=== PATIENT | male | born 1960 | race Caucasian/White ===

== ENCOUNTER 2020-07-10 11:51 | Emergency (ER) | payer BC, SELFPAY ==
[2020-07-10 12:00] VITALS: BP 144/78; PULSE 58; RESP 14; TEMP 36.8; O2SAT 100
--- NOTE | 2020-07-10 12:21 | ED.GENADULT ---
HPI - General Adult General Chief complaint: Eye Problems Stated complaint: right eye red/swollen Time Seen by Provider: 07/10/20 12:21 Source: patient and RN notes reviewed Mode of arrival: ambulatory Limitations: no limitations History of Present Illness HPI narrative: 60-year-old male presents with complains of eye pain, photophobia, tearing, sensation of foreign body or abrasion in right eye for the past 24 hours. Willian says he was out cutting firewood, had on safety glasses, unsure how foreign body entered eye. Flushed without relief. Mild redness, no drainage. Symptoms worsening throughout the day. Exacerbating factor light. Relieving factors is closing eyes. Denies blurred vision, double vision, or pain of eye with movement. Wears reading glasses. The patient reports he have not been diagnosed with COVID-19. The patient reports he is not waiting for the results of a COVID-19 lab test. The patient reports he do not have fever, chills, weakness, or fatigue. The patient reports he do not have a new or worsening cough or shortness of breath. Denies chest pain. The patient reports he do not have any rhinorrhea, congestion, loss of taste, sore throat, nausea, vomiting, abdominal pain, and diarrhea. Tolerating po intake well. Denies recent traveling. Denies concerns for COVID-19 or exposures been home with limited outdoor exposure except for essential household needs, work, and return home. At this time, patient is not suspected of having COVID-19. Some parts of this dictation were generated by voice recognition software and may contain typographical and/or grammatical inaccuracies. Related Data Allergies Allergy/AdvReac Type Severity Reaction Status Date / Time No Known Allergies Allergy Verified 07/10/20 12:12 Review of Systems Review of Systems: Narrative: CONSTITUTIONAL: Denies fever, chills, sweats. EYES: Denies visual changes. Complains of RT eye redness photophobia, tearing, sensation of foreign body or abrasion. ENT: Denies rhinorrhea, congestion, sore throat, otalgia. CARDIOVASCULAR: Denies chest pain, palpitations, edema. RESPIRATORY: Denies dyspnea, wheezing, cough. GASTROINTESTINAL: Denies abdominal pain, nausea, vomiting, diarrhea. SKIN: Denies rash or itching. NEUROLOGIC: Denies numbness or focal weakness. PSYCHIATRIC: Denies anxiety or depression. All systems reviewed & are unremarkable except as noted in HPI and below [facility] Past Medical History Medical History (Updated 07/11/20 @ 00:00 by Judy Cleveland) Foot injury LT heel Hernia Surgical History Surgical History (Updated 07/10/20 @ 12:40 by COLT Mcfadden) History of hernia surgery Bilateral inguinal and umbilical repairs Family History Family History (Updated 07/10/20 @ 12:41 by COLT Mcfadden) Father Pulmonary air embolism Mother , Data 84 complications of congestive heart failure Diabetes mellitus Social History Social History (Updated 07/10/20 @ 12:42 by COLT Mcfadden) Smoking status: Former smoker Tobacco type: cigarettes Second hand tobacco smoke exposure: No Smoking end date: 08/10/14 Alcohol intake: current Substance use: never Living arrangements: alone Additional living arrangements comments: has a cat Occupation/Education: occupation Gender identity (if verbalized by the patient): Male Comments At time of signature, I have reviewed and agree with nursing past medical, surgical, social, and family history. Please see nursing chart for further information. There is no relevant family history pertinent to the presenting complaint. Exam Narrative: Exam Narrative: GENERAL: This is a well-nourished, well-developed patient, in no apparent distress. HEAD: normocephalic, atraumatic. EYES: PERRL. Sclera clear/white to LT eye only. RT eye sclera prince and clear with clear watery drainage, no swelling, no tenderness on palpation or erythema
== END 2020-07-10 12:51 | disposition home or self-care (01) ==
PROVIDERS: Emergency Provider Nurse Practitioner Family
DX: S05.01XA Injury of conjunctiva and corneal abrasion without foreign body, right eye, initial encounter (principal); X58.XXXA Exposure to other specified factors, initial encounter; Z87.891 Personal history of nicotine dependence
CPT/HCPCS: 99213; A9270; G0463